=== PATIENT | male | born 1980 | race Caucasian/White ===

== ENCOUNTER 2016-10-12 14:59 | Emergency (ER) | payer SELFPAY ==
[~2016-10-12] VITALS: Ht 172.7 cm; Wt 58.1 kg
[2016-10-12 15:04] VITALS: Ht 172.7 cm; Wt 58.1 kg
== END 2016-10-12 20:21 | disposition left against medical advice (07) ==
LOC: FTE 14:59
DX: Z53.21 Procedure and treatment not carried out due to patient leaving prior to being seen by health care provider (principal)

== ENCOUNTER 2017-01-06 15:46 | Emergency (ER) | payer MEDICAID ==
[~2017-01-06] VITALS: Ht 170.2 cm; Wt 58.5 kg
[2017-01-06 15:56] VITALS: Ht 170.2 cm; Wt 58.5 kg
[2017-01-06] MEDS ORDERED: HALOPERIDOL 5 MG INJ IM STA (16:01)
[2017-01-06] MEDS ORDERED: LORAZEPAM 2 MG INJ IM STA (16:01)
[2017-01-06 16:44] LABS: ADD SCAN DIFF NO
[2017-01-06 16:49] LABS: BASOPHILS % 0.4 % (0.0-2.0); EOSINOPHILS # 0.1 10^3/ul (0.0-0.5); EOSINOPHILS % 0.6 % (0.0-7.0); HEMOGLOBIN 12.7 g/dl (14.0-18.0); LYMPHOCYTES # 2.8 10^3/ul (0.8-2.9); LYMPHOCYTES % 35.3 % (15.0-51.0); MEAN CORPUSCULAR HEMOGLOBIN 29.4 pg (29.0-33.0); MEAN CORPUSCULAR HGB CONC 32.6 g/dl (32.0-37.0); MEAN CORPUSCULAR VOLUME 90.3 fl (82.0-101.0); MEAN PLATELET VOLUME 11.5 fl (7.4-10.4); MONOCYTE # 0.5 10^3/ul (0.3-0.9); MONOCYTES % 5.9 % (0.0-11.0); NEUTROPHIL # 4.6 10^3/ul (1.6-7.5); NEUTROPHILS % 57.5 % (39.0-77.0); PLATELET COUNT 175 10^3/UL (140-415); RED BLOOD COUNT 4.32 10^6/ul (4.70-6.10)
[2017-01-06 17:33] LABS: ALBUMIN 4.5 g/dl (3.3-4.9); CHLORIDE 105 mmol/L (97-110); POTASSIUM 4.1 mmol/L (3.5-5.1); SODIUM 142 mmol/L (135-144)
[2017-01-06 17:35] LABS: BARBITURATES NEGATIVE (NEGATIVE); BENZODIAZEPINES NEGATIVE (NEGATIVE); CANNABINOIDS POSITIVE (NEGATIVE); COCAINE NEGATIVE (NEGATIVE); OPIATES NEGATIVE (NEGATIVE)
[2017-01-06 17:35] LABS: ASPARTATE AMINO TRANSFERASE 28 IU/L (15-46); BILIRUBIN,INDIRECT 0.2 mg/dl (0-1.1); BILIRUBIN,TOTAL 0.2 mg/dl (0.2-1.3); CARBON DIOXIDE 25 mmol/L (21-31); CREATININE 0.87 mg/dl (0.61-1.24)
[2017-01-06 17:36] LABS: ALANINE AMINOTRANSFERASE 25 IU/L (13-69); ALBUMIN/GLOBULIN RATIO 1.66; ALKALINE PHOSPHATASE 62 IU/L (42-121); ANION GAP 16 (8-16); BLOOD UREA NITROGEN 9 mg/dl (7-20); CALCIUM 9.5 mg/dl (8.4-10.2); GLUCOSE 86 mg/dl (70-220); TOTAL PROTEIN 7.2 g/dl (6.1-8.1)
[2017-01-06 17:39] LABS: ACETAMINOPHEN < 10.0 ug/ml (10.0-30.0); ETHANOL < 10.0 mg/dl; SALICYLATE < 1.0 mg/dl (5.0-30.0)
[2017-01-06 18:30] VITALS: BP 138/77; PULSE 72; RESP 17; TEMP 99.1
[2017-01-06] MEDS ORDERED: PROP50TA2 PO (19:49)
--- NOTE | 2017-01-06 21:22 | ERD ---
ER Documentation Chief Complaint Date/Time DATE: 01/06/17 TIME: 21:19 Chief Complaint PSYCH EVAL "i WANT HURT MYSELF OR SOMEONE ELSE" HPI 36-year-old male presents emergency room for thoughts of wanting to hurt himself or others. He states that he feels like he is going to explode. He has a history of schizophrenia and is currently off medications. He is asking for help. He denies any pain recent trauma or any medical issues currently. ROS All systems reviewed and are negative except as per history of present illness. Allergies Allergies: Coded Allergies: No Known Allergies (Verified Allergy, Mild, 03/13/16) PMhx/Soc History of Surgery: No Anesthesia Reaction: No Hx Neurological Disorder: No Hx Respiratory Disorders: No Hx Cardiac Disorders: No Hx Psychiatric Problems: Yes (SCHIZOPHRENIA, PTSD) Hx Miscellaneous Medical Probl: No Hx Alcohol Use: Yes Hx Substance Use: No Hx Tobacco Use: Yes Smoking Status: Current every day smoker Physical Exam Vitals Vital Signs Date Time Temp Pulse Resp B/P Pulse Ox O2 Delivery O2 Flow Rate FiO2 01/06/17 18:30 99.1 72 17 138/77 100 Room Air 01/06/17 15:56 98.0 87 18 170/97 98 Physical Exam Const: [] No physical distress, Head: Atraumatic Eyes: Normal Conjunctiva ENT: Normal External Ears, Nose and Mouth. Neck: Full range of motion..~ No meningismus. Resp: Clear to auscultation bilaterally Cardio: Regular rate and rhythm, no murmurs Abd: Soft, non tender, non distended. Normal bowel sounds Skin: No petechiae or rashes Ext: No cyanosis, or edema Neur: Awake and alert and oriented 3, no focal deficits Psych: Appears anxious but is calm Result Diagram: 01/06/17 1625 01/06/17 1625 Results 24 hrs Laboratory Tests Test 01/06/17 16:25 01/06/17 16:50 White Blood Count 8.010^3/ul Red Blood Count 4.3210^6/ul Hemoglobin 12.7g/dl Hematocrit 39.0% Mean Corpuscular Volume 90.3fl Mean Corpuscular Hemoglobin 29.4pg Mean Corpuscular Hemoglobin Concent 32.6g/dl Red Cell Distribution Width 13.0% Platelet Count 69678^3/UL Mean Platelet Volume 11.5fl Neutrophils % 57.5% Lymphocytes % 35.3% Monocytes % 5.9% Eosinophils % 0.6% Basophils % 0.4% Nucleated Red Blood Cells % 0.0/100WBC Neutrophils # 4.610^3/ul Lymphocytes # 2.810^3/ul Monocytes # 0.510^3/ul Eosinophils # 0.110^3/ul Basophils # 0.010^3/ul Nucleated Red Blood Cells # 0.010^3/ul Sodium Level 142mmol/L Potassium Level 4.1mmol/L Chloride Level 105mmol/L Carbon Dioxide Level 25mmol/L Anion Gap 16 Blood Urea Nitrogen 9mg/dl Creatinine 0.87mg/dl Glucose Level 86mg/dl Calcium Level 9.5mg/dl Total Bilirubin 0.2mg/dl Direct Bilirubin 0.00mg/dl Indirect Bilirubin 0.2mg/dl Aspartate Amino Transf (AST/SGOT) 28IU/L Alanine Aminotransferase (ALT/SGPT) 25IU/L Alkaline Phosphatase 62IU/L Total Protein 7.2g/dl Albumin 4.5g/dl Globulin 2.70g/dl Albumin/Globulin Ratio 1.66 Salicylates Level < 1.0mg/dl Acetaminophen Level < 10.0ug/ml Ethyl Alcohol Level < 10.0mg/dl Urine Opiates Screen NEGATIVE Urine Barbiturates NEGATIVE Urine Amphetamines Screen NEGATIVE Urine Benzodiazepines Screen NEGATIVE Urine Cocaine Screen NEGATIVE Urine Cannabinoids POSITIVE Current Medications Medications (Trade) Dose Ordered Sig/Yissel Route PRN Reason Start Time Stop Time Status Last Admin Dose Admin Lorazepam (Ativan) 1 mg ONCE STAT IM 01/06/17 16:01 01/06/17 16:05 DC 01/06/17 16:14 Haloperidol (Haldol) 5 mg ONCE STAT IM 01/06/17 16:01 01/06/17 16:05 DC 01/06/17 16:13 Procedures/MDM Schizophrenic male having an exacerbation of such. He was given 5 mg of Haldol and 2 mg of Ativan which helped with his symptoms but he was still feeling very paranoid and like she was crawling out of his skin. Patient is medically cleared and that he has no current diagnoses would preclude him from psychiatric admission. He has mild anemia and denies any GI bleeding history. Fortunately a [facility] rental sales representative was in house and the patient is Graham found placement and is being transferred to [facility] for psychiatric treatment. Departure Diagnosis: Primary Impression: Acute schizophrenia episode Additional Impression: KARLEY Lemus DO January 06, 2017 21:22
== END 2017-01-06 21:00 ==
LOC: E/R 15:46
DX: F23 Brief psychotic disorder (principal); D64.9 Anemia, unspecified; F17.210 Nicotine dependence, cigarettes, uncomplicated
CPT/HCPCS: 36415; 80053; 80306; 80307; 85025; 96372; J1630; J2060; Z7502

== ENCOUNTER 2017-12-22 21:12 | Emergency (ER) | END 2017-12-22 21:56 | disposition left against medical advice (07) ==